=== PATIENT | female | born 1990 | race African-American/Black ===

== ENCOUNTER 2017-05-15 09:45 | Emergency (ER) | payer SELFPAY ==
--- NOTE | 2017-05-15 11:10 | RAD ---
PA AND LATERAL CHEST: Date: 05/15/17 COMPARISON: 05/16/16. HISTORY: Productive cough. FINDINGS: Heart size and mediastinum are within normal limits. Lungs are clear of infiltrates. No bony findings . IMPRESSION: No active intrathoracic disease. POS: [facility]
== END 2017-05-15 11:53 | disposition home or self-care (01) ==
LOC: ERS 09:45
DX: J20.9 Acute bronchitis, unspecified (principal); Z86.711 Personal history of pulmonary embolism
CPT/HCPCS: 71020

== ENCOUNTER 2017-12-02 12:37 | Emergency (ER) | payer OTHER, SELFPAY ==
[2017-12-02] MEDS ORDERED: diphenhydrAMINE 25 MG CAP ONE (13:23)
== END 2017-12-02 13:27 | disposition home or self-care (01) ==
LOC: ERS 12:37
DX: S80.862A Insect bite (nonvenomous), left lower leg, initial encounter (principal)
CPT/HCPCS: 99282

== ENCOUNTER 2017-12-10 12:34 | Emergency (ER) | payer OTHER ==
[2017-12-10 13:07] LABS: #Basophils 0.1 thou/uL (0.0-0.2); #Eosinphils 0.5 thou/uL (0.0-0.7); #Lymphocytes 1.9 thou/uL (1.20-3.40); #Monocytes 0.5 thou/uL (0.11-0.59); #Neutrophils 3.5 thou/uL (1.40-6.50); %Basophils 1.4 % (0.0-1.0); %Eosinophils 7.2 % (0.0-10.0); %Lymphocytes 29.6 % (21.0-51.0); %Monocytes 7.5 % (0.0-10.0); %Neutrophils 54.4 % (42.0-75.0); Hemoglobin 13.4 g/dL (12.0-16.0); Mean Corpuscular HGB CONC 33.5 g/dL (32.0-36.0); Mean Corpuscular Hemoglobin 28.4 pg (27.0-31.0); Mean Corpuscular Volume 84.6 fl (81.0-99.0); Mean Platelet Volume 7.1 fL (7.4-10.4); Platelet Count 331 thou/uL (130-400); RBC Distribution Width 12.3 % (11.5-14.5); Red Blood Cell (RBC) Count 4.72 mill/uL (4.20-5.40); White Blood Cell (WBC) Count 6.5 thou/uL (4.8-10.8)
[2017-12-10 13:34] LABS: ALT (SGPT) 13 U/L (8-55); AST (SGOT) 16 U/L (5-34); Albumin 3.8 g/dL (3.5-5.0); Alkaline Phosphatase 70 U/L (40-150); Anion Gap 12 mmol/L (10-20); BUN (Urea Nitrogen) 8 mg/dL (7.0-18.7); Bilirubin, Total 0.3 mg/dL (0.2-1.2); CK (CPK) 140 U/L (29-168); Calc. Creatinine Clearance 0 mL/min (70-130); Calcium 9.2 mg/dL (7.8-10.44); Carbon Dioxide 25 mmol/L (22-29); Chloride 105 mmol/L (98-107); Estimated GFR-MDRD Greater than 90; Globulin 3.3 g/dL (2.4-3.5); Glucose 78 mg/dL (70-105); Lipase 11 U/L (8-78); Potassium 3.7 mmol/L (3.5-5.1); Protein, Total 7.1 g/dL (6.0-8.3); Sodium 138 mmol/L (136-145)
[2017-12-10 13:38] LABS: CKMB 0.6 ng/mL (0-6.6); Troponin I Less than 0.010 ng/mL (< 0.028)
--- NOTE | 2017-12-10 13:52 | RAD ---
SINGLE VIEW CHEST: Date: 12/10/17 COMPARISON: 03/09/17. HISTORY: Chest pain. FINDINGS: Single view of the chest shows a normal sized cardiomediastinal silhouette. There is no evidence of c onsolidation, mass, or pleural effusion. The bones are unremarkable. IMPRESSION: No evidence of acute cardiopulmonary disease. POS: [facility]
[2017-12-10 14:38] LABS: BHCG - Serum Negative (NEGATIVE); Pregs Control Background? CLEAR/WHITE (CLR/WHITE); Pregs Control Bar Appear? YES (CONTROL BAR)
== END 2017-12-10 15:02 | disposition left against medical advice (07) ==
LOC: ERS 12:34
DX: R07.2 Precordial pain (principal)
CPT/HCPCS: 71045; 80053; 82553; 83690; 83880; 84484; 84703; 85025; 85379; 93005

== ENCOUNTER 2017-12-10 15:55 | Observation (INO) | payer OTHER ==
[~2017-12-10 15:55] MED LIST: ISOVUE-370 76%-LOCM 1 ML ONE
[2017-12-10 18:31] LABS: INR-International Normal Ratio 1.1; PTT 27.5 SEC (22.9-36.1)
[2017-12-10] MEDS ORDERED: Enoxaparin Sodium 80 MG/0.8 ML SYRINGE ONE (18:33)
--- NOTE | 2017-12-10 19:13 | CT ---
CT ANGIO OF CHEST WITH CONTRAST: 12/10/17 Multiple axial tomograms obtained through the chest following pulmonary angio protocol with multiplan ar reconstruction and 3D postprocessing. INDICATIONS: Chest pain. Shortness of breath. Elevated D-dimer. FINDINGS: Pulmonary arteries show adequate opacification. There is pulmonary embolus seen in a right middle lob e pulmonary artery which branches from the right descending main pulmonary artery. There is a linear embolus seen in this right descending pulmonary artery extending to the lower lobes. No other filling defect identified. The lung gomes are clear. There is no evidence of infiltrate or effusion. Mediastinum unremarkable. Images through upper abdomen unremarkable. IMPRESSION: 1. Evidence of a pulmonary embolus to a right middle lobe pulmonary artery. Linear embolus is se en in the main right descending pulmonary artery which extends to the lower lobe vessels. Findings relayed to Mey Echevarria, nurse practitioner. POS: [facility]
[2017-12-10] MEDS ORDERED: Fioricet 325/50/40 mg Tablet PO PRN (19:39)
[2017-12-10] MEDS ORDERED: Acetaminophen 325 MG TAB PO PRN (19:41)
[2017-12-10 20:54] LABS: INR-International Normal Ratio 1.1; PTT 33.3 SEC (22.9-36.1); Prothrombin Time 14.4 SEC (12.0-14.7)
[2017-12-10 20:55] LABS: D-Dimer Test 0.93 *mcg/mL (0.27-0.43)
[2017-12-10] MEDS: Famotidine 20 MG TAB PO SCH (21:03)
[2017-12-10] MEDS: Sodium Chloride 0.9% 1,000 ML IV SCH (22:01)
--- NOTE | 2017-12-10 22:11 | ULT ---
BILATERAL LOWER EXTREMITY VENOUS DUPLEX EXAM: 12/10/17 Deep veins of both lower extremities evaluated with color doppler, spectral analysis and compression. INDICATIONS: Pulmonary embolus. Lower extremity pain and edema. Deep veins of both lower extremities show normal blood flow and compression. No evidence of DVT. IMPRESSION: No evidence of lower extremity DVT. POS: [facility]
[2017-12-10 22:40] VITALS: BMI 37.8
--- NOTE | 2017-12-11 02:55 | HP ---
CHIEF COMPLAINT: Chest pain, shortness of breath. HISTORY OF PRESENT ILLNESS: The patient is a very pleasant 27-year-old female with a history of pulm onary embolism diagnosed back in 2011, who presents to the hospital with complaints of chest pain, he adache and some shortness of breath. Patient stated that she started having some sharp chest pain, s ubsternal, radiating to her back which has been going on and off for about a week. She also has been having some headaches, a pressure-like sensation in the front part of her head and also behind her n chanell area. Patient states that she did not take any medications for it. She thought it would just re solve on its own. The patient stated that she does have some photophobia; however, denies any nausea , vomiting. The patient denies any fevers or chills. The patient states further that in 2014, 2-3 w eeks after her third child that she had by , patient was diagnosed with a pulmonary embolism . At that time, patient states that she was put on Coumadin and took it for about a year and then se lf-took her off her medication in [id number]. Patient states that she did come in to the ER a couple of times in the past; however, she was told that she does not have a PE. The patient comes in today. She was scanned, which indicated a pulmonary embolism to her right middle lobe pulmonary artery and linear embolism is seen in the main right descending pulmonary artery, which extends to the lower lo bed vessels. PAST MEDICAL HISTORY: Pulmonary embolism. PAST SURGICAL HISTORY: She has had C-sections, hernia repair, and tubal ligation. SOCIAL HISTORY: She denies any alcohol, drugs or smoking. ALLERGIES: She is allergic to MORPHINE. She says she gets hives in reactions. MEDICATIONS: She takes none. REVIEW OF SYSTEMS: All negative except for the ones mentioned above in the HPI. PHYSICAL EXAMINATION: VITAL SIGNS: Temperature of 98.8, respirations are 18, blood pressure 107/71, pulse 76, and she is 1 00% on room air. GENERAL: She is awake, alert, oriented x3, does not appear in distress. CV: S1, S2 present. No murmurs, rubs or gallops. ABDOMEN: Soft, nontender. Bowel sounds present x2. No hepatomegaly and splenomegaly noted. LUNGS: Clear to auscultation. No rhonchi or wheezes noted. EXTREMITIES: No edema. Pedal pulses are present x2. No redness or pain noted. NEUROVASCULAR: No focal neuropathy noted. SKIN: Intact. LABORATORY DATA: As the following: She had a WBC of 6.5, hemoglobin of 13.4, hematocrit of 39.9, no bands, her platelets are 331. Chemistry: Sodium of 138, potassium 3.7, BUN of 8, creatinine 0.9. Her troponin x1 was negative. Her LFTs are completely normal. Her lipase is 11. Serum te st is negative. Coagulation, her INR was 1.1. She did have a D-dimer checked which was 0.55. She a lso had a chest and thorax CTA that indicated evidence of pulmonary embolism to the right middle lobe pulmonary artery, linear embolism seen in the right descending pulmonary artery. ASSESSMENT AND PLAN: The patient is a very pleasant 27-year-old female who presents to the hospital with shortness of breath and chest pain. Pulmonary embolism. Per patient, she initially was diagnosed in 2014 with a CTA that was done at [facility], she stated . The patient at that time was put on Coumadin which according to her , she took it about for a year and then self-took her off the medication. I see two CTAs in our faci lity, which were done in 12/2015 and then 02/2016. 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 She then had a CTA in 02/2016, which stated it was normal. The patient did state that she was told that her CTA was normal in the past. However, at this time, she comes in with chest pain and sh ortness of breath. She states that her symptoms are as not as severe as she had them in the past; kal seymour, her CT at this time, is positive for pulmonary embolism. Her troponins are negative. We will trend the troponins. We will start patient on Lovenox and she does have insurance, we will check wi th case management in the morning to see if we can start her on oral anticoagulation and if that is t he case, we will send her home with oral anticoagulation. We will also check lower extremity Doppler s. She already received a Lovenox shot, but however, I would like to know why she is still hypercoag ulable since she does not have a family history except for her maternal uncle who has had blood clots ; however, she stated that he is a drug user. She has not had any recent travel, has not had any rec ent children. She is not on any control. She has tubal ligation. She has had a Pap smear 2 m onths ago, which was negative. So, I did do a hypercoagulable workup. I will also refer her to [facility] as an outpatient and will go from there.
[2017-12-11 04:26] LABS: #Basophils 0.1 thou/uL (0.0-0.2); #Eosinphils 0.5 thou/uL (0.0-0.7); #Monocytes 0.4 thou/uL (0.11-0.59); #Neutrophils 2.6 thou/uL (1.40-6.50); %Basophils 1.1 % (0.0-1.0); %Eosinophils 8.4 % (0.0-10.0); %Lymphocytes 35.9 % (21.0-51.0); %Monocytes 7.2 % (0.0-10.0); %Neutrophils 47.4 % (42.0-75.0); Hemoglobin 12.7 g/dL (12.0-16.0); Mean Corpuscular HGB CONC 33.4 g/dL (32.0-36.0); Mean Corpuscular Hemoglobin 28.1 pg (27.0-31.0); Mean Corpuscular Volume 84.1 fl (81.0-99.0); Mean Platelet Volume 7.1 fL (7.4-10.4); Platelet Count 317 thou/uL (130-400); RBC Distribution Width 12.2 % (11.5-14.5); White Blood Cell (WBC) Count 5.4 thou/uL (4.8-10.8)
[2017-12-11 04:31] LABS: Anion Gap 10 mmol/L (10-20); BUN (Urea Nitrogen) 6 mg/dL (7.0-18.7); Calc. Creatinine Clearance 139 mL/min (70-130); Calcium 8.9 mg/dL (7.8-10.44); Carbon Dioxide 25 mmol/L (22-29); Chloride 109 mmol/L (98-107); Estimated GFR-MDRD Greater than 90; Glucose 90 mg/dL (70-105); Potassium 3.8 mmol/L (3.5-5.1); Sodium 140 mmol/L (136-145)
[2017-12-11] MEDS: Sodium Chloride 0.9% 1,000 ML IV SCH (04:41)
[2017-12-11] MEDS: Famotidine 20 MG TAB PO SCH ×2 (08:56→19:11)
[2017-12-11] MEDS: Ferrous Sulfate 325 MG TAB PO SCH ×2 (08:56→19:11)
[2017-12-11] MEDS ORDERED: Enoxaparin Sodium 80 MG/0.8 ML SYRINGE SC SCH (09:00)
[2017-12-11 11:13] LABS: Protein C Activity 112 % (78-152)
[2017-12-11 11:14] LABS: Factor VIII Test 247.2 % ACTIVE (56-157)
[2017-12-11] MEDS ORDERED: diphenhydrAMINE 50 MG/ML VIAL IVP SCH (11:45)
[2017-12-11] MEDS ORDERED: Metoclopramide HCl 10 MG/2 ML VIAL IVP SCH (11:45)
[2017-12-11 12:23] LABS: Cardiolipin IgA Ab 2.2 APL-U/mL (<14 Negative); Cardiolipin IgG Ab 0.9 GPL-U/mL (<10 Negative); Cardiolipin IgM Ab 1.2 MPL-U/mL (<10 Negative); EliA APS New Method **** NEW METHOD ****
--- NOTE | 2017-12-11 12:37 | PDOC.PN ---
- Subjective Encounter Start Date: 12/11/17 Encounter Start Time: 10:30 Subjective: pt up in bed complains of headache - Objective Vital Signs & Weight: Vital Signs (12 hours) Temp Pulse Resp BP BP Pulse Ox 12/11/17 11:05 98.2 F 63 18 107/50 L 99 12/11/17 08:56 98.4 F 68 18 12/11/17 07:25 98.4 F 68 18 106/53 L 96 12/11/17 04:07 98.0 F 67 16 103/56 L 98 Weight Weight 187 lb Result Diagrams: 12/11/17 04:03 12/11/17 04:03 Additional Labs: Accuchecks 12/11/17 09:44 POC Glucose 90 Phys Exam - Physical Examination HEENT: PERRLA, moist MMs, sclera anicteric, TM's clear, oral pharynx no lesions , 2+ tonsils Neck: no nodes, no JVD, supple, full ROM Respiratory: no wheezing, no rales, no rhonchi, wheezing present, clear to auscultation bilateral Cardiovascular: RRR, no significant murmur, no rub, gallop, irregular Gastrointestinal: soft, non-tender, no distention, positive bowel sounds pain around her neck muscles Dx/Plan (1) Pulmonary emboli Code(s): I26.99 - OTHER PULMONARY EMBOLISM WITHOUT ACUTE COR PULMONALE Status : Acute - Plan * . pt's able to afford her xarelto. lower ext Doppler neg. hypercoagulation work up pending. will start pt on xarelto. she will need outpatient follow up. Review of Systems - Review of Systems ENT: negative: Ear Pain, Ear Discharge, Nose Pain, Nose Discharge, Nose Congestion, Mouth Pain, Mouth Swelling, Throat Pain, Throat Swelling, Other Respiratory: negative: Cough, Dry, Shortness of Breath, Hemoptysis, SOB with Excertion, Pleuritic Pain, Sputum, Wheezing Gastrointestinal: negative: Nausea, Vomiting, Abdominal Pain, Diarrhea, Constipation, Melena, Hematochezia, Other - Medications/Allergies Allergies/Adverse Reactions: Allergies Allergy/AdvReac Type Severity Reaction Status Date / Time morphine Allergy Hives Verified 12/10/17 21:54 Medications: Current Medications Acetaminophen (Tylenol) 650 mg PO Q4H PRN PRN Reason: Headache/Fever or Pain Last Admin: 12/11/17 10:50 Dose: 650 mg Acetaminophen/Butalbital/Caffeine (Fioricet) 1 tab PO Q4H PRN PRN Reason: Headache Stop: 12/15/17 19:40 Last Admin: 12/10/17 21:03 Dose: 1 tab Diphenhydramine HCl (Benadryl) 12.5 mg IVP ONE [facility] Stop: 12/11/17 16:00 Famotidine (Pepcid) 20 mg PO BID [facility] Last Admin: 12/11/17 08:56 Dose: 20 mg Ferrous Sulfate (Feosol) 325 mg PO BID[facility] Last Admin: 12/11/17 08:56 Dose: 325 mg Metoclopramide HCl (Reglan) 10 mg IVP ONE [facility] Stop: 12/11/17 16:00 Rivaroxaban (Xarelto) 15 mg PO BID [facility] Sodium Chloride (Flush - Normal Saline) 10 ml IVF Q12HR [facility] Last Admin: 12/11/17 08:57 Dose: 10 ml Sodium Chloride (Flush - Normal Saline) 10 ml IVF PRN PRN PRN Reason: Saline Flush
[2017-12-11 12:41] LABS: HEX PHOS LA Tube 2 59.5 SEC; Hexagonal Phospholipid Neut 3.4 SEC (0-8.0)
[2017-12-11] MEDS ORDERED: diphenhydrAMINE 12.5 MG/5 ML UDCUP PO PRN (12:53)
[2017-12-11] MEDS ORDERED: Metoclopramide HCl 10 MG TAB PO PRN (12:54)
[2017-12-11 13:27] LABS: CKMB 0.5 ng/mL (0-6.6); Troponin I Less than 0.010 ng/mL (< 0.028)
[2017-12-11] MEDS: Rivaroxaban 15 MG TAB PO SCH (19:11)
[2017-12-11] MEDS ORDERED: Rivaroxaban 15 MG TAB PO SCH (21:00)
[2017-12-12 07:56] VITALS: BP 122/59; TEMP 98.7
[2017-12-12] MEDS: Famotidine 20 MG TAB PO SCH (09:13)
[2017-12-12] MEDS: Rivaroxaban 15 MG TAB PO SCH (09:13)
[2017-12-12] MEDS: Ferrous Sulfate 325 MG TAB PO SCH (09:13)
--- NOTE | 2017-12-12 17:01 | DIS ---
DATE OF ADMISSION: 12/10/2017 DATE OF DISCHARGE: 12/12/2017 DISCHARGE DIAGNOSIS: Acute pulmonary embolism. HOSPITAL COURSE: The patient is a very pleasant 27-year-old female who presented to the hospital on the with complaints of some chest pain and shortness of breath. The patient has had a history o f a PE in the past and she took Coumadin for about a year to get off of Coumadin. She has had a coup le of scans after that, which indicated no PE. However, she comes in today with complaints of some s hortness of breath. She denies any recent travel, any recent surgeries, any recent pregnancies. She does not have a significant family history of blood clots; however, she said her uncle has a history of blood clots. The patient was initially given Lovenox shots. She was transitioned to Xarelto. Santosh crowe did check with her insurance and she is able to afford Xarelto. We will start the patient on a nini ding dose of 15 mg twice a day, followed by 20 mg daily and she was given instructions on the risk fa ctors including bleeding and education on Xarelto. The patient will be discharged home. Follow up w [facility] PCP. Also, Hematology referral was given. Hypercoagulable workup was sent. The patient also mckeon d lower extremity venous Dopplers, which indicated there were no DVT. PHYSICAL EXAMINATION: VITAL SIGNS: 98.7, 72, 16, 97% on room air, 122/59. GENERAL: She is awake, alert, oriented x3, does not appear in distress. CARDIOVASCULAR: S1, S2 present. No murmurs, rubs or gallops. ABDOMEN: Soft, nontender. Bowel sounds are present x2. EXTREMITIES: No edema. DISCHARGE INSTRUCTIONS: Again, the patient will be discharged home. Follow up with PCP and Hematolo gy.
== END 2017-12-12 11:28 | disposition home or self-care (01) ==
LOC: ERS 15:55 → 2SW 20:08
PROVIDERS: ADMIT Internal Medicine; ATTEND Internal Medicine
DX: I26.99 Other pulmonary embolism without acute cor pulmonale (principal); Z88.5 Allergy status to narcotic agent; Z79.899 Other long term (current) drug therapy
CPT/HCPCS: 36415; 36416; 71045; 71275; 80048; 80053; 81240; 81241; 82553; 83090; 83690; 83880; 84484; 84703; 85025; 85240; 85300; 85303; 85305; 85307; 85379; 85598; 85610; 85730; 86147; 93005; 93010; 93970; 96372; A4216; G0378; J1650

== ENCOUNTER 2018-05-15 16:43 | Emergency (ER) | payer OTHER ==
--- NOTE | 2018-05-15 17:13 | RAD ---
PORTABLE FRONTAL CHEST RADIOGRAPH: 05/15/18 COMPARISON: 12/10/17. HISTORY: Chest pain and chest tightness. FINDINGS: There is no pneumothorax or pleural fluid. No focal consolidation, or alveolar edema. Heart and media stinal contours appear grossly unremarkable. IMPRESSION: No acute findings. POS: [facility]
[2018-05-15] MEDS ORDERED: Fentanyl 100 MCG/2 ML VIAL ONE (17:31)
[2018-05-15 17:36] LABS: #Basophils 0.1 thou/uL (0.0-0.2); #Eosinphils 0.6 thou/uL (0.0-0.7); #Lymphocytes 2.4 thou/uL (1.20-3.40); #Monocytes 0.8 thou/uL (0.11-0.59); #Neutrophils 4.7 thou/uL (1.40-6.50); %Basophils 1.2 % (0.0-1.0); %Eosinophils 7.4 % (0.0-10.0); %Lymphocytes 27.5 % (21.0-51.0); %Monocytes 9.4 % (0.0-10.0); %Neutrophils 54.5 % (42.0-75.0); Hemoglobin 11.1 g/dL (12.0-16.0); Mean Corpuscular HGB CONC 32.6 g/dL (32.0-36.0); Mean Corpuscular Hemoglobin 25.2 pg (27.0-31.0); Mean Corpuscular Volume 77.4 fL (78.0-98.0); Mean Platelet Volume 7.8 fL (7.4-10.4); Platelet Count 364 thou/uL (130-400); RBC Distribution Width 13.6 % (11.5-14.5); Red Blood Cell (RBC) Count 4.39 mill/uL (4.20-5.40); White Blood Cell (WBC) Count 8.6 thou/uL (4.8-10.8)
[2018-05-15 17:45] LABS: INR-International Normal Ratio 1.1; PTT 29.4 SEC (22.9-36.1); Prothrombin Time 14.3 SEC (12.0-14.7)
[2018-05-15 17:47] LABS: D-Dimer Test 0.48 *mcg/mL (0.27-0.43)
[2018-05-15 17:52] LABS: ALT (SGPT) 14 U/L (8-55); AST (SGOT) 17 U/L (5-34); Albumin 3.7 g/dL (3.5-5.0); Alkaline Phosphatase 70 U/L (40-150); Anion Gap 9 mmol/L (10-20); BUN (Urea Nitrogen) 10 mg/dL (7.0-18.7); Bilirubin, Total 0.3 mg/dL (0.2-1.2); CK (CPK) 212 U/L (29-168); Calc. Creatinine Clearance 0 mL/min (70-130); Calcium 9.7 mg/dL (7.8-10.44); Carbon Dioxide 25 mmol/L (22-29); Chloride 108 mmol/L (98-107); Estimated GFR-MDRD Greater than 90; Globulin 3.5 g/dL (2.4-3.5); Glucose 80 mg/dL (70-105); Lipase 15 U/L (8-78); Potassium 4.1 mmol/L (3.5-5.1); Protein, Total 7.2 g/dL (6.0-8.3); Sodium 138 mmol/L (136-145)
[2018-05-15 17:55] LABS: CKMB 0.9 ng/mL (0-6.6); Troponin I Less than 0.010 ng/mL (< 0.028)
[2018-05-15 18:08] LABS: BHCG - Serum Negative (NEGATIVE); Pregs Control Background? CLEAR/WHITE (CLR/WHITE); Pregs Control Bar Appear? YES (CONTROL BAR)
[2018-05-15] MEDS ORDERED: diphenhydrAMINE 50 MG CAP ONE (18:36)
[2018-05-15] MEDS ORDERED: methylPREDNISolone Sod Succ/PF 125 MG/2 ML VIAL ONE (18:36)
--- NOTE | 2018-05-15 18:42 | CT ---
CT ANGIOGRAM OF THE CHEST 05/15/18 COMPARISON: 12/10/17 HISTORY: Chest tightness, chest pain. TECHNIQUE: Serial axial CT imaging at 2.5 mm intervals from the thoracic inlet through the upper abdomen with IV contrast using a CT angiogram protocol. Coronal and oblique sagittal 3D reformatted imaging obtained . FINDINGS: no axillary, mediastinal, or hilar lymphadenopathy noted. Review of the imaged upper abdomen appears grossly unremarkable. No pleural, pericardial, or mediastinal fluid is seen. Opacification of the distal pulmonary arteries bilaterally is limited on the basis of timing of the c ontrast bolus. No central pulmonary embolism is appreciated. No pneumothorax noted on either side. Lung parenchyma appears grossly unremarkable bilaterally. [place] us structures demonstrate no acute findings. IMPRESSION: No CT angiographic evidence of central pulmonary embolism. POS: [facility]
[2018-05-15] MEDS ORDERED: diphenhydrAMINE 50 MG/ML VIAL IVP SCH (18:45)
[2018-05-15] MEDS ORDERED: Enoxaparin Sodium 100 MG/ML SYRINGE ONE (19:40)
[2018-05-15 21:21] LABS: Troponin I Less than 0.010 ng/mL (< 0.028)
== END 2018-05-15 21:43 | disposition home or self-care (01) ==
LOC: ERS 16:43
DX: R07.89 Other chest pain (principal); Z79.899 Other long term (current) drug therapy
CPT/HCPCS: 36415; 71045; 71275; 80053; 82550; 82553; 83690; 83880; 84484; 84703; 85025; 85379; 85610; 85730; 93005; 94760; 96361; 96372; 96374; 96375; J1200; J1650; J2930; J3010

== ENCOUNTER 2018-09-12 12:18 | Emergency (ER) | payer OTHER, SELFPAY ==
[2018-09-12 12:50] LABS: #Eosinphils 0.4 thou/uL (0.0-0.7); #Lymphocytes 1.8 thou/uL (1.20-3.40); #Monocytes 0.6 thou/uL (0.11-0.59); #Neutrophils 4.3 thou/uL (1.40-6.50); %Basophils 0.6 % (0.0-1.0); %Lymphocytes 25.4 % (21.0-51.0); %Monocytes 7.9 % (0.0-10.0); %Neutrophils 60.1 % (42.0-75.0); Hemoglobin 11.9 g/dL (12.0-16.0); Mean Corpuscular HGB CONC 33.1 g/dL (32.0-36.0); Mean Corpuscular Hemoglobin 25.3 pg (27.0-31.0); Mean Corpuscular Volume 76.6 fL (78.0-98.0); Mean Platelet Volume 7.6 fL (7.4-10.4); Platelet Count 395 thou/uL (130-400); Red Blood Cell (RBC) Count 4.69 mill/uL (4.20-5.40); White Blood Cell (WBC) Count 7.2 thou/uL (4.8-10.8)
[2018-09-12 12:57] LABS: INR-International Normal Ratio 1.1; PTT 27.4 SEC (22.9-36.1)
[2018-09-12 12:58] LABS: D-Dimer Test 0.78 *mcg/mL (0.27-0.43)
[2018-09-12] MEDS ORDERED: ISOVUE-370 76%-LOCM 1 ML ONE (13:06)
[2018-09-12 13:11] LABS: ALT (SGPT) 12 U/L (8-55); AST (SGOT) 16 U/L (5-34); Albumin 3.9 g/dL (3.5-5.0); Alkaline Phosphatase 74 U/L (40-150); Anion Gap 10 mmol/L (10-20); BUN (Urea Nitrogen) 9 mg/dL (7.0-18.7); Bilirubin, Total 0.3 mg/dL (0.2-1.2); Calc. Creatinine Clearance 0 mL/min (70-130); Calcium 9.6 mg/dL (7.8-10.44); Carbon Dioxide 27 mmol/L (22-29); Chloride 107 mmol/L (98-107); Estimated GFR-MDRD 82; Globulin 3.3 g/dL (2.4-3.5); Glucose 64 mg/dL (70-105); Protein, Total 7.2 g/dL (6.0-8.3); Sodium 140 mmol/L (136-145)
--- NOTE | 2018-09-12 13:58 | RAD ---
2 VIEW CHEST: Date: 09/12/18 HISTORY: Cough. FINDINGS: Lungs are clear. No infiltrate. Heart and mediastinum unremarkable. IMPRESSION: No acute findings. POS: [facility]
[2018-09-12 14:15] LABS: BHCG - Serum Negative (NEGATIVE); Pregs Control Background? CLEAR/WHITE (CLR/WHITE); Pregs Control Bar Appear? YES (CONTROL BAR)
--- NOTE | 2018-09-12 15:16 | CT ---
CHEST CT ANGIOGRAM WITH 3D RENDERING: Date: 09/12/18 HISTORY: Dyspnea. Chest pain. COMPARISON: 05/15/18. FINDINGS: No evidence for acute pulmonary parenchymal process or pleural or pericardial effusion. Central pulmo nary arteries are free of thrombus. No convincing CT evidence for acute pulmonary embolism. No eviden ce for aortic aneurysm or dissection. Visualized upper abdomen is unremarkable. IMPRESSION: No convincing CT evidence for acute pulmonary embolism. No evidence for other significant acute proce ss. POS: [facility]
[2018-09-12] MEDS ORDERED: Ketorolac Tromethamine 30 MG/ML VIAL ONE (16:32)
== END 2018-09-12 16:48 | disposition home or self-care (01) ==
LOC: ERS 12:18
DX: J20.9 Acute bronchitis, unspecified (principal); Z86.711 Personal history of pulmonary embolism
CPT/HCPCS: 36415; 71046; 71275; 80053; 84484; 84703; 85025; 85379; 85610; 85730; 93005; 96374; J1885; Q9966

== ENCOUNTER 2018-09-29 10:25 | Emergency (ER) | payer SELFPAY | END 2018-09-29 12:09 | disposition home or self-care (01) | LOC: ERS 10:25 | DX: J01.90 Acute sinusitis, unspecified (principal) | CPT/HCPCS: 99281 ==

== ENCOUNTER 2018-10-27 12:05 | Emergency (ER) | payer SELFPAY ==
[2018-10-27 12:53] LABS: #Eosinphils 0.5 thou/uL (0.0-0.7); #Lymphocytes 2.1 thou/uL (1.20-3.40); #Monocytes 0.6 thou/uL (0.11-0.59); %Basophils 0.5 % (0.0-1.0); %Eosinophils 7.9 % (0.0-10.0); %Lymphocytes 34.2 % (21.0-51.0); %Monocytes 8.8 % (0.0-10.0); %Neutrophils 48.6 % (42.0-75.0); Hemoglobin 11.6 g/dL (12.0-16.0); Mean Corpuscular HGB CONC 32.1 g/dL (32.0-36.0); Mean Corpuscular Hemoglobin 25.2 pg (27.0-31.0); Mean Corpuscular Volume 78.4 fL (78.0-98.0); Mean Platelet Volume 7.6 fL (7.4-10.4); Platelet Count 395 thou/uL (130-400); RBC Distribution Width 15.1 % (11.5-14.5); Red Blood Cell (RBC) Count 4.61 mill/uL (4.20-5.40); White Blood Cell (WBC) Count 6.2 thou/uL (4.8-10.8)
[2018-10-27 13:09] LABS: D-Dimer Test 0.47 *mcg/mL (0.27-0.43); INR-International Normal Ratio 1.1; PTT 27.6 SEC (22.9-36.1); Prothrombin Time 14.1 SEC (12.0-14.7)
[2018-10-27 13:17] LABS: ALT (SGPT) 12 U/L (8-55); AST (SGOT) 17 U/L (5-34); Albumin 3.9 g/dL (3.5-5.0); Alkaline Phosphatase 72 U/L (40-150); Anion Gap 11 mmol/L (10-20); BUN (Urea Nitrogen) 7 mg/dL (7.0-18.7); Bilirubin, Total 0.3 mg/dL (0.2-1.2); CK (CPK) 191 U/L (29-168); Calc. Creatinine Clearance 0 mL/min (70-130); Calcium 9.4 mg/dL (7.8-10.44); Carbon Dioxide 24 mmol/L (22-29); Chloride 107 mmol/L (98-107); Estimated GFR-MDRD Greater than 90; Globulin 3.2 g/dL (2.4-3.5); Glucose 72 mg/dL (70-105); Potassium 3.6 mmol/L (3.5-5.1); Protein, Total 7.1 g/dL (6.0-8.3); Sodium 138 mmol/L (136-145)
--- NOTE | 2018-10-27 13:17 | RAD ---
PA AND LATERAL VIEWS OF CHEST: Date: 10/27/18 HISTORY: Chest pain. FINDINGS: Comparison made with exam of 09/12/18. The heart size is normal. The lungs are expanded without focal areas of consolidation, pneumothoraces , or pleural effusions. No acute osseous abnormalities are seen. IMPRESSION: No radiographic evidence of acute cardiopulmonary process. POS: [facility]
[2018-10-27 14:27] LABS: BHCG - Serum Negative (NEGATIVE); Pregs Control Background? CLEAR/WHITE (CLR/WHITE); Pregs Control Bar Appear? YES (CONTROL BAR)
[2018-10-27] MEDS ORDERED: ISOVUE-370 76%-LOCM 1 ML ONE (14:39)
[2018-10-27] MEDS ORDERED: diphenhydrAMINE 50 MG/ML VIAL ONE (14:46)
[2018-10-27] MEDS ORDERED: methylPREDNISolone Sod Succ/PF 125 MG/2 ML VIAL ONE (14:46)
--- NOTE | 2018-10-27 14:47 | ULT ---
Left upper extremity venous duplex ultrasound including color and spectral Doppler imaging: HISTORY: Dyspnea, chest pain FINDINGS: The left upper extremity deep venous system is evaluated including the internal jugular, subclavian, axillary, brachial, radial and ulnar veins. Visualized cephalic and basilic veins are evaluated. There is incomplete compressibility of the upper and mid brachial vein with decreased flow through th is region evidence for incompletely obstructing thrombus. The radial and ulnar veins are patent as are the remainder of the left upper extremity deep veins. IMPRESSION: Decreased compressibility and minimal intraluminal thrombus within the upper and mid left brachial ve in evidence for incompletely obstructing deep venous thrombosis. Findings given by the medical technologist generalist to Dr. Vallejo at 2:40 PM CODE CR
[2018-10-27] MEDS ORDERED: Famotidine/PF 20 mg/2ml Vial ONE (14:48)
--- NOTE | 2018-10-27 15:53 | CT ---
CT PULMONARY ANGIOGRAM WITH IV CONTRAST AND 3D POSTPROCESSIN10/27/18 HISTORY: Chest pain, left upper extremity DVT. FINDINGS: There is good opacification of the pulmonary artery vasculature without filling defects to suggest pu lmonary embolism. The thoracic aorta is well opacified without aneurysmal dissection. A residual thym us is again seen as on 09/12/18. No fluid or pericardial effusions are identified. No pneumothoraces, focal areas of consolidation, lung masses/nodules are seen. Upper abdominal tomograms are unremarkabl e. No acute osseous abnormalities are seen. IMPRESSION: No CT evidence of pulmonary embolism. POS: [facility]
== END 2018-10-27 16:49 | disposition home or self-care (01) ==
LOC: ERS 12:05
DX: I82.622 Acute embolism and thrombosis of deep veins of left upper extremity (principal); I26.99 Other pulmonary embolism without acute cor pulmonale; Z79.01 Long term (current) use of anticoagulants
CPT/HCPCS: 36415; 71046; 71275; 80053; 82550; 84484; 84703; 85025; 85379; 85610; 85730; 93005; 96374; 96375; J1200; J2930; Q9966; S0028

== ENCOUNTER 2019-03-01 23:35 | Emergency (ER) | payer SELFPAY ==
[2019-03-02 00:24] LABS: #Basophils 0.1 thou/uL (0.0-0.2); #Eosinphils 0.5 thou/uL (0.0-0.7); #Lymphocytes 2.7 thou/uL (1.20-3.40); #Monocytes 0.6 thou/uL (0.11-0.59); #Neutrophils 4.6 thou/uL (1.40-6.50); %Eosinophils 5.9 % (0.0-10.0); %Lymphocytes 32.1 % (21.0-51.0); %Monocytes 7.1 % (0.0-10.0); Hemoglobin 11.9 g/dL (12.0-16.0); Mean Corpuscular HGB CONC 34.1 g/dL (32.0-36.0); Mean Corpuscular Hemoglobin 26.6 pg (27.0-31.0); Mean Corpuscular Volume 77.9 fL (78.0-98.0); Mean Platelet Volume 7.9 fL (7.4-10.4); Platelet Count 330 thou/uL (130-400); RBC Distribution Width 14.8 % (11.5-14.5); Red Blood Cell (RBC) Count 4.46 mill/uL (4.20-5.40); White Blood Cell (WBC) Count 8.4 thou/uL (4.8-10.8)
[2019-03-02 00:43] LABS: ALT (SGPT) 11 U/L (8-55); AST (SGOT) 16 U/L (5-34); Alkaline Phosphatase 69 U/L (40-150); Anion Gap 11 mmol/L (10-20); BUN (Urea Nitrogen) 10 mg/dL (7.0-18.7); Bilirubin, Total 0.4 mg/dL (0.2-1.2); Calc. Creatinine Clearance 0 mL/min (70-130); Calcium 9.6 mg/dL (7.8-10.44); Carbon Dioxide 25 mmol/L (22-29); Chloride 106 mmol/L (98-107); Estimated GFR-MDRD Greater than 90; Globulin 2.9 g/dL (2.4-3.5); Glucose 85 mg/dL (70-105); Potassium 3.8 mmol/L (3.5-5.1); Protein, Total 6.9 g/dL (6.0-8.3); Sodium 138 mmol/L (136-145)
[2019-03-02 02:32] LABS: Bilirubin Negative (Negative); Blood, Urine Negative (Negative); Clarity Clear (Clear); Glucose, Urine (Dipstick) Normal (Negative); Leukocyte Negative Leu/uL (Negative); Nitrite Negative (Negative); Protein, Urine (Dipstick) Negative (Neg-Trace); Urobilinogen Normal mg/dL (Less than 2)
[2019-03-02 02:33] LABS: Pregnancy Test - Urine (BHCG) Negative (Negative); Pregu Control Background? CLEAR/WHITE (CLR/WHITE); Pregu Control Bar Appear? YES (CONTROL BAR); Specific Gravity 1.014 (1.002-1.036)
--- NOTE | 2019-03-02 08:33 | RAD ---
CHEST ONE VIEW: HISTORY: Left-sided chest pain and shortness of breath. COMPARISON: 10/27/2018 FINDINGS: Heart size is normal. Lungs are clear. IMPRESSION: No acute intrathoracic disease. POS: [facility]
--- NOTE | 2019-03-06 03:16 | EKG ---
Test Reason : Blood Pressure : / mmHG Vent. Rate : 078 BPM Atrial Rate : 078 BPM P-R Int : 154 ms QRS Dur : 088 ms QT Int : 362 ms P-R-T Axes : 034 007 007 degrees QTc Int : 412 ms Normal sinus rhythm Normal ECG Confirmed by EMERITA BARRIENTOS DO ([id number]), assistant production editor SIGIFREDO LARA ([id number]) on 03/06/2019 3:15:12 AM Referred By: Confirmed By:EMERITA BARRIENTOS DO
== END 2019-03-02 02:25 | disposition home or self-care (01) ==
LOC: ERS 23:35
DX: R07.89 Other chest pain (principal); F32.9 Major depressive disorder, single episode, unspecified; I82.622 Acute embolism and thrombosis of deep veins of left upper extremity; Z86.711 Personal history of pulmonary embolism; Z79.01 Long term (current) use of anticoagulants
CPT/HCPCS: 36415; 71045; 80053; 81003; 81025; 83880; 84484; 85025; 85379; 93005

== ENCOUNTER 2019-04-26 08:36 | Emergency (ER) | payer SELFPAY ==
--- NOTE | 2019-04-26 09:01 | RAD ---
Exam: Chest 2 views HISTORY:Pain Comparison: 10/27/2018 FINDINGS: Lungs: No masses or consolidation. Cardiac silhouette: Normal size Pulmonary vessels: Normal Pleural Spaces: Clear Pneumothorax: None Osseous abnormalities: None of acuity. IMPRESSION: No focal consolidation.
[2019-04-26 09:04] LABS: #Basophils 0.1 thou/uL (0.0-0.2); #Eosinphils 0.6 thou/uL (0.0-0.7); #Monocytes 0.5 thou/uL (0.11-0.59); %Basophils 0.7 % (0.0-1.0); %Eosinophils 7.9 % (0.0-10.0); %Monocytes 6.7 % (0.0-10.0); %Neutrophils 56.7 % (42.0-75.0); Hemoglobin 11.7 g/dL (12.0-16.0); Mean Corpuscular HGB CONC 31.3 g/dL (32.0-36.0); Mean Corpuscular Hemoglobin 24.6 pg (27.0-31.0); Mean Corpuscular Volume 78.6 fL (78.0-98.0); Mean Platelet Volume 7.6 fL (7.4-10.4); Platelet Count 411 thou/uL (130-400); RBC Distribution Width 14.1 % (11.5-14.5); Red Blood Cell (RBC) Count 4.74 mill/uL (4.20-5.40); White Blood Cell (WBC) Count 7.1 thou/uL (4.8-10.8)
[2019-04-26 09:20] LABS: ALT (SGPT) 8 U/L (8-55); AST (SGOT) 14 U/L (5-34); Alkaline Phosphatase 83 U/L (40-110); Anion Gap 12 mmol/L (10-20); BUN (Urea Nitrogen) 5 mg/dL (7.0-18.7); Bilirubin, Total 0.3 mg/dL (0.2-1.2); Calc. Creatinine Clearance 0 mL/min (70-130); Calcium 9.4 mg/dL (7.8-10.44); Carbon Dioxide 25 mmol/L (22-29); Chloride 106 mmol/L (98-107); Estimated GFR-MDRD Greater than 90; Globulin 3.3 g/dL (2.4-3.5); Glucose 83 mg/dL (70-105); Potassium 4.1 mmol/L (3.5-5.1); Protein, Total 7.3 g/dL (6.0-8.3); Sodium 139 mmol/L (136-145)
[2019-04-26 09:57] LABS: BHCG - Serum Negative (NEGATIVE); Pregs Control Background? CLEAR/WHITE (CLR/WHITE); Pregs Control Bar Appear? YES (CONTROL BAR)
[2019-04-26] MEDS ORDERED: Acetaminophen 500 MG TAB ONE (11:07)
[2019-04-26] MEDS ORDERED: Ketorolac Tromethamine 60 MG/2 ML VIAL ONE (11:07)
== END 2019-04-26 11:25 | disposition home or self-care (01) ==
LOC: ERS 08:36
DX: R07.9 Chest pain, unspecified (principal); F32.9 Major depressive disorder, single episode, unspecified; Z86.711 Personal history of pulmonary embolism; Z86.718 Personal history of other venous thrombosis and embolism
CPT/HCPCS: 36415; 71046; 80053; 84484; 84703; 85025; 85379; 93005; 96372; J1885

== ENCOUNTER 2019-05-22 09:54 | Emergency (ER) | payer SELFPAY ==
[2019-05-22 10:57] LABS: #Basophils 0.1 thou/uL (0.0-0.2); #Eosinphils 0.4 thou/uL (0.0-0.7); #Monocytes 0.5 thou/uL (0.11-0.59); #Neutrophils 3.4 thou/uL (1.40-6.50); %Basophils 1.1 % (0.0-1.0); %Eosinophils 6.4 % (0.0-10.0); %Lymphocytes 30.8 % (21.0-51.0); %Monocytes 7.5 % (0.0-10.0); %Neutrophils 54.2 % (42.0-75.0); Hemoglobin 12.1 g/dL (12.0-16.0); Mean Corpuscular HGB CONC 33.4 g/dL (32.0-36.0); Mean Corpuscular Hemoglobin 25.9 pg (27.0-31.0); Mean Corpuscular Volume 77.6 fL (78.0-98.0); Mean Platelet Volume 8.2 fL (7.4-10.4); Platelet Count 379 thou/uL (130-400); RBC Distribution Width 13.7 % (11.5-14.5); Red Blood Cell (RBC) Count 4.65 mill/uL (4.20-5.40); White Blood Cell (WBC) Count 6.3 thou/uL (4.8-10.8)
[2019-05-22 11:11] LABS: ALT (SGPT) 11 U/L (8-55); AST (SGOT) 18 U/L (5-34); Albumin 4.1 g/dL (3.5-5.0); Alkaline Phosphatase 79 U/L (40-110); Anion Gap 11 mmol/L (10-20); BUN (Urea Nitrogen) 8 mg/dL (7.0-18.7); Bilirubin, Total 0.4 mg/dL (0.2-1.2); CK (CPK) 216 U/L (29-168); Calc. Creatinine Clearance 0 mL/min (70-130); Calcium 9.4 mg/dL (7.8-10.44); Carbon Dioxide 26 mmol/L (22-29); Chloride 106 mmol/L (98-107); Estimated GFR-MDRD 89; Globulin 3.7 g/dL (2.4-3.5); Glucose 81 mg/dL (70-105); Potassium 3.6 mmol/L (3.5-5.1); Protein, Total 7.8 g/dL (6.0-8.3); Sodium 139 mmol/L (136-145)
[2019-05-22] MEDS ORDERED: Famotidine/PF 20 mg/2ml Vial ONE (11:23)
[2019-05-22] MEDS ORDERED: diphenhydrAMINE 50 MG/ML VIAL ONE (11:23)
[2019-05-22] MEDS ORDERED: methylPREDNISolone Sod Succ/PF 125 MG/2 ML VIAL ONE (11:24)
--- NOTE | 2019-05-22 11:42 | ULT ---
Bilateral lower extremity venous Doppler ultrasound: 05/22/2019 COMPARISON: None HISTORY: History of DVT and pulmonary embolism TECHNIQUE: Multiplanar grayscale sonographic imaging of the venous structures of bilateral lower extr emities obtained with color flow and spectral analysis FINDINGS: Bilateral common femoral veins, greater saphenous veins, profunda femoral veins, femoral ve ins, popliteal veins, and posterior tibial veins are patent. There is normal blood flow, augmentation, and compression within the deep venous system bilaterally. No evidence for DVT on eithe r side IMPRESSION: No evidence for deep venous thrombosis of either lower extremity.
[2019-05-22] MEDS ORDERED: Iopamidol-370 76% 500 ML 1 ML ONE (12:11)
--- NOTE | 2019-05-22 13:42 | CT ---
CT PULMONARY ANGIOGRAM WITH IV CONTRAST AND 3D MIP RECONSTRUCTIONS: 05/22/2019 PROVIDED CLINICAL HISTORY: Chest pain. COMPARISON: 10/27/2018 FINDINGS: The heart, pericardium and great vessels demonstrate an unremarkable CT appearance. There is no evide nce for central or segmental pulmonary embolus. The lungs are free of significant opacity. No pleural fluid or pneumothorax apparent. The airway appears patent and of normal caliber. No evidence for tho racic lymph node enlargement. The visualized portions of the upper abdomen appear unremarkable. The osseous structures demonstrate no acute findings. IMPRESSION: No evidence for central or segmental pulmonary embolus. POS: [facility]
== END 2019-05-22 13:50 | disposition home or self-care (01) ==
LOC: EEVIPCON 09:54 → ERS 09:54
DX: R07.9 Chest pain, unspecified (principal); H11.31 Conjunctival hemorrhage, right eye; Z86.718 Personal history of other venous thrombosis and embolism; Z86.711 Personal history of pulmonary embolism; F32.9 Major depressive disorder, single episode, unspecified; Z79.01 Long term (current) use of anticoagulants
CPT/HCPCS: 71275; 80053; 82550; 84484; 85025; 85379; 93005; 93970; 94760; 96374; 96375; J1200; J2930; Q9967; S0028

== ENCOUNTER 2019-09-03 14:27 | Emergency (ER) | payer MEDICARE, SELFPAY ==
[2019-09-03] MEDS ORDERED: Ketorolac Tromethamine 30 MG/ML VIAL ONE (15:32)
--- NOTE | 2019-09-03 15:48 | RAD ---
EXAM: Two views chest PROVIDED CLINICAL HISTORY: Back pain COMPARISON: 04/26/2019 FINDINGS: Cardiac and mediastinal silhouette appears within normal limits. Lungs appear free of significant opa city. No pleural fluid or pneumothorax apparent. IMPRESSION: No evidence for an acute cardiopulmonary process.
== END 2019-09-03 16:33 | disposition home or self-care (01) ==
LOC: ERS 14:27
DX: S29.012A Strain of muscle and tendon of back wall of thorax, initial encounter (principal); Z86.711 Personal history of pulmonary embolism; Z86.718 Personal history of other venous thrombosis and embolism; F32.9 Major depressive disorder, single episode, unspecified; Z79.899 Other long term (current) drug therapy; X50.9XXA Other and unspecified overexertion or strenuous movements or postures, initial encounter; Y99.0 Civilian activity done for income or pay
CPT/HCPCS: 71046; 96372; J1885

== ENCOUNTER 2020-01-10 07:32 | Emergency (ER) | payer SELFPAY ==
[2020-01-10 08:15] LABS: #Eosinphils 0.4 thou/uL (0.0-0.7); #Lymphocytes 1.6 thou/uL (1.20-3.40); #Monocytes 0.4 thou/uL (0.11-0.59); #Neutrophils 4.1 thou/uL (1.40-6.50); %Basophils 0.6 % (0.0-1.0); %Eosinophils 5.8 % (0.0-10.0); %Lymphocytes 25.1 % (21.0-51.0); %Monocytes 6.3 % (0.0-10.0); %Neutrophils 62.3 % (42.0-75.0); Hemoglobin 12.6 g/dL (12.0-16.0); Mean Corpuscular Hemoglobin 26.4 pg (27.0-31.0); Mean Platelet Volume 7.7 fL (7.4-10.4); Platelet Count 387 thou/uL (130-400); RBC Distribution Width 14.4 % (11.5-14.5); Red Blood Cell (RBC) Count 4.78 mill/uL (4.20-5.40); White Blood Cell (WBC) Count 6.5 thou/uL (4.8-10.8)
[2020-01-10] MEDS ORDERED: Acetaminophen 500 MG TAB ONE (08:17)
--- NOTE | 2020-01-10 08:28 | RAD ---
EXAM: Single view of the chest HISTORY: Chest pain COMPARISON: 03/02/2019 FINDINGS: Single view of the chest shows a normal sized cardiomediastinal silhouette. There is no herman dence of consolidation, mass, or pleural effusion. The bones are unremarkable. IMPRESSION: No evidence of acute cardiopulmonary disease
[2020-01-10 08:35] LABS: BHCG - Serum Negative (NEGATIVE); Pregs Control Background? CLEAR/WHITE (CLR/WHITE); Pregs Control Bar Appear? YES (CONTROL BAR)
[2020-01-10 08:45] LABS: ALT (SGPT) 17 U/L (8-55); AST (SGOT) 17 U/L (5-34); Albumin 3.7 g/dL (3.5-5.0); Alkaline Phosphatase 77 U/L (40-110); Anion Gap 11 mmol/L (10-20); BUN (Urea Nitrogen) 8 mg/dL (7.0-18.7); Bilirubin, Total 0.4 mg/dL (0.2-1.2); CK (CPK) 172 U/L (29-168); Calc. Creatinine Clearance 0 mL/min (70-130); Calcium 9.4 mg/dL (7.8-10.44); Carbon Dioxide 24 mmol/L (22-29); Chloride 107 mmol/L (98-107); Estimated GFR-MDRD 86; Globulin 3.5 g/dL (2.4-3.5); Glucose 84 mg/dL (70-105); Magnesium 1.9 mg/dL (1.6-2.6); Potassium 4.2 mmol/L (3.5-5.1); Protein, Total 7.2 g/dL (6.0-8.3); Sodium 138 mmol/L (136-145)
== END 2020-01-10 10:01 | disposition home or self-care (01) ==
LOC: ERS 07:32
DX: R07.89 Other chest pain (principal); F32.9 Major depressive disorder, single episode, unspecified; Z86.718 Personal history of other venous thrombosis and embolism; Z86.711 Personal history of pulmonary embolism
CPT/HCPCS: 36415; 71045; 80053; 82550; 83735; 84484; 84703; 85025; 93005

== ENCOUNTER 2020-03-19 14:15 | Emergency (ER) | payer OTHER, SELFPAY ==
[~2020-03-19 14:15] MED LIST changes: -ISOVUE-370 76%-LOCM 1 ML ONE; +Iopamidol 370 76% 100 ML VIAL ONE
--- NOTE | 2020-03-19 15:31 | RAD ---
XR Chest 1 View Portable HISTORY: Chest pain, shortness of breath COMPARISON: 01/10/2020, 02/07/2020 FINDINGS: The heart size is normal. The lungs are well expanded without focal areas of consolidation, pneumothorax or pleural effusions. IMPRESSION: No radiographic evidence of acute cardiopulmonary process.
[2020-03-19 15:46] LABS: #Basophils 0.1 thou/uL (0.0-0.2); #Eosinphils 0.3 thou/uL (0.0-0.7); #Lymphocytes 2.2 thou/uL (1.20-3.40); #Monocytes 0.6 thou/uL (0.11-0.59); #Neutrophils 3.9 thou/uL (1.40-6.50); %Basophils 1.3 % (0.0-1.0); %Eosinophils 4.8 % (0.0-10.0); %Lymphocytes 31.2 % (21.0-51.0); %Monocytes 8.2 % (0.0-10.0); %Neutrophils 54.6 % (42.0-75.0); Hemoglobin 12.7 g/dL (12.0-16.0); Mean Corpuscular HGB CONC 33.6 g/dL (32.0-36.0); Mean Corpuscular Hemoglobin 26.8 pg (27.0-31.0); Mean Corpuscular Volume 79.5 fL (78.0-98.0); Platelet Count 363 thou/uL (130-400); RBC Distribution Width 13.8 % (11.5-14.5); Red Blood Cell (RBC) Count 4.76 mill/uL (4.20-5.40); White Blood Cell (WBC) Count 7.1 thou/uL (4.8-10.8)
[2020-03-19 16:09] LABS: ALT (SGPT) 13 U/L (8-55); AST (SGOT) 16 U/L (5-34); Albumin 3.9 g/dL (3.5-5.0); Alkaline Phosphatase 70 U/L (40-110); Anion Gap 14 mmol/L (10-20); BUN (Urea Nitrogen) 8 mg/dL (7.0-18.7); Bilirubin, Total 0.2 mg/dL (0.2-1.2); CK (CPK) 185 U/L (29-168); Calc. Creatinine Clearance 0 mL/min (70-130); Calcium 9.3 mg/dL (7.8-10.44); Carbon Dioxide 25 mmol/L (22-29); Chloride 107 mmol/L (98-107); Estimated GFR-MDRD 72; Globulin 3.6 g/dL (2.4-3.5); Glucose 115 mg/dL (70-105); Potassium 3.6 mmol/L (3.5-5.1); Protein, Total 7.5 g/dL (6.0-8.3); Sodium 142 mmol/L (136-145)
[2020-03-19 16:39] LABS: BHCG - Serum Negative (NEGATIVE); Pregs Control Background? CLEAR/WHITE (CLR/WHITE); Pregs Control Bar Appear? YES (CONTROL BAR)
[2020-03-19] MEDS ORDERED: diphenhydrAMINE 50 MG/ML VIAL ONE (17:26)
[2020-03-19] MEDS ORDERED: Famotidine/PF 20 mg/2ml Vial ONE (17:26)
[2020-03-19] MEDS ORDERED: methylPREDNISolone Sod Succ/PF 125 MG/2 ML VIAL ONE (17:26)
--- NOTE | 2020-03-19 20:03 | CT ---
CT PULMONARY ANGIOGRAM WITH IV CONTRAST AND 3D MIP RECONSTRUCTIONS: date: 03-19-2020 PROVIDED CLINICAL HISTORY: Chest pressure FINDINGS: Comparison is made with study dated 05-22-19. The heart, pericardium, and great vessels appear unremarkable. There is no evidence for central or se gmental pulmonary embolus. The lungs are free of significant opacity. The airway appears patent and o f normal caliber. No pleural fluid or pneumothorax apparent. No evidence for thoracic lymph node enla rgement. The visualized portions of the upper abdomen appear unremarkable. The osseous structures demonstrate no concerning lytic or blastic lesions. IMPRESSION: No evidence for central or segmental pulmonary embolus. POS: [facility]
[2020-03-20 13:30] LABS: SARS-CoV-2 MS2 Positive; SARS-CoV-2 N Gene Negative; SARS-CoV-2 S Gene Negative; SARS-CoV-2 by NAA Not Detected (NotDetected); SARS-CoV-2 orf1ab Negative
== END 2020-03-19 19:33 | disposition home or self-care (01) ==
LOC: ERS 14:15
DX: B34.9 Viral infection, unspecified (principal); R07.9 Chest pain, unspecified; Z20.828 Contact with and (suspected) exposure to other viral communicable diseases; Z86.718 Personal history of other venous thrombosis and embolism; Z79.899 Other long term (current) drug therapy
CPT/HCPCS: 36415; 71045; 71275; 80053; 82550; 84484; 84703; 85025; 85379; 87635; 93005; 94760; 96374; 96375; J1200; J2930; Q9967; S0028; U0003

== ENCOUNTER 2020-04-11 15:39 | Emergency (ER) | payer OTHER, SELFPAY ==
[2020-04-11 16:40] LABS: #Eosinphils 0.1 thou/uL (0.0-0.7); #Lymphocytes 1.4 thou/uL (1.20-3.40); #Neutrophils 5.1 thou/uL (1.40-6.50); %Basophils 0.6 % (0.0-1.0); %Eosinophils 1.2 % (0.0-10.0); %Lymphocytes 18.3 % (21.0-51.0); %Monocytes 12.5 % (0.0-10.0); %Neutrophils 67.5 % (42.0-75.0); Hemoglobin 12.2 g/dL (12.0-16.0); Mean Corpuscular HGB CONC 33.9 g/dL (32.0-36.0); Mean Corpuscular Hemoglobin 26.4 pg (27.0-31.0); Mean Corpuscular Volume 77.9 fL (78.0-98.0); Mean Platelet Volume 7.7 fL (7.4-10.4); Platelet Count 404 thou/uL (130-400); RBC Distribution Width 13.7 % (11.5-14.5); Red Blood Cell (RBC) Count 4.62 mill/uL (4.20-5.40); White Blood Cell (WBC) Count 7.6 thou/uL (4.8-10.8)
[2020-04-11] MEDS ORDERED: Acetaminophen 500 MG TAB ONE (16:42)
[2020-04-11 16:47] LABS: Bacteria/HPF 3+ HPF (None Seen); Bilirubin Negative (Negative); Blood, Urine 1+ (Negative); Clarity Turbid (Clear); Glucose, Urine (Dipstick) Normal (Negative); Ketone, Urine Negative (Negative); Leukocyte 500 Leu/uL (Negative); Nitrite 2+ (Negative); Protein, Urine (Dipstick) 50 mg/dL (Neg-Trace); RBC/HPF 0-3 HPF (0-3); Specific Gravity, Urine 1.011 (1.002-1.036); Squamous Epithelial None Seen HPF (0-3); Urobilinogen Normal mg/dL (Less than 2); WBC/HPF Greater than 50 HPF (0-3); pH, Urine 5.5 (5.0-9.0)
[2020-04-11 16:48] LABS: Pregnancy Test - Urine (BHCG) Negative (Negative); Pregu Control Background? CLEAR/WHITE (CLR/WHITE); Pregu Control Bar Appear? YES (CONTROL BAR); Specific Gravity 1.011 (1.002-1.036)
[2020-04-11 17:02] LABS: ALT (SGPT) 23 U/L (8-55); AST (SGOT) 26 U/L (5-34); Alkaline Phosphatase 64 U/L (40-110); Anion Gap 13 mmol/L (10-20); BUN (Urea Nitrogen) 7 mg/dL (7.0-18.7); Bilirubin, Total 0.4 mg/dL (0.2-1.2); Calc. Creatinine Clearance 0 mL/min (70-130); Calcium 9.1 mg/dL (7.8-10.44); Carbon Dioxide 26 mmol/L (22-29); Chloride 101 mmol/L (98-107); Estimated GFR-MDRD 82; Globulin 4.2 g/dL (2.4-3.5); Glucose 79 mg/dL (70-105); Potassium 3.6 mmol/L (3.5-5.1); Protein, Total 8.2 g/dL (6.0-8.3); Sodium 136 mmol/L (136-145)
[2020-04-11] MEDS ORDERED: cefTRIAXone\\ROCEPHIN 2 GM VIAL ONE (17:45)
[2020-04-11] MEDS ORDERED: Acetaminophen 325 MG TAB ONE ×2 (17:45→17:46)
[2020-04-11] MEDS ORDERED: Ondansetron PF 4 MG/2 ML Vial ONE (17:45)
[2020-04-11] MEDS ORDERED: Ketorolac Tromethamine 30 MG/ML VIAL ONE (17:45)
== END 2020-04-11 18:31 | disposition home or self-care (01) ==
LOC: ERS 15:39
DX: A41.9 Sepsis, unspecified organism (principal); N12 Tubulo-interstitial nephritis, not specified as acute or chronic; F32.9 Major depressive disorder, single episode, unspecified; Z86.711 Personal history of pulmonary embolism
CPT/HCPCS: 80053; 81003; 81015; 81025; 83605; 85025; 87040; 96365; 96375; J0696; J1885; J2405

== ENCOUNTER 2020-05-21 18:08 | Emergency (ER) | payer SELFPAY ==
[2020-05-21] MEDS ORDERED: Lidocaine 1% w/Epinephrine 1:100K 20 ML VIAL ONE ×2 (19:05)
== END 2020-05-21 19:04 | disposition home or self-care (01) ==
LOC: ERS 18:08
DX: L02.411 Cutaneous abscess of right axilla (principal); F32.9 Major depressive disorder, single episode, unspecified
CPT/HCPCS: 10061

== ENCOUNTER 2020-05-31 07:11 | Emergency (ER) | payer SELFPAY | END 2020-05-31 07:33 | disposition home or self-care (01) | LOC: ERS 07:11 | DX: L02.411 Cutaneous abscess of right axilla (principal); L03.111 Cellulitis of right axilla; R59.0 Localized enlarged lymph nodes | CPT/HCPCS: 99283 ==

== ENCOUNTER 2020-07-19 16:46 | Emergency (ER) | payer MEDICAID, SELFPAY ==
[2020-07-19 17:14] LABS: #Basophils 0.1 thou/uL (0.0-0.2); #Eosinphils 0.3 thou/uL (0.0-0.7); #Lymphocytes 2.6 thou/uL (1.20-3.40); #Monocytes 0.6 thou/uL (0.11-0.59); #Neutrophils 3.4 thou/uL (1.40-6.50); %Basophils 1.4 % (0.0-1.0); %Eosinophils 4.9 % (0.0-10.0); %Lymphocytes 37.1 % (21.0-51.0); %Monocytes 8.3 % (0.0-10.0); %Neutrophils 48.3 % (42.0-75.0); Hemoglobin 12.1 g/dL (12.0-16.0); Mean Corpuscular HGB CONC 33.6 g/dL (32.0-36.0); Mean Corpuscular Hemoglobin 26.2 pg (27.0-31.0); Platelet Count 373 thou/uL (130-400); RBC Distribution Width 15.3 % (11.5-14.5)
--- NOTE | 2020-07-19 17:19 | RAD ---
PA AND LATERAL CHEST: 07/19/20 HISTORY: Tested positive for COVID on July 02. New onset shortness of breath. COMPARISON: 02/07/20 exam. Heart size and mediastinum are within normal limits. Lungs appear clear of any infiltrative process. No pleural effusions. IMPRESSION: No active intrathoracic disease. POS: [facility]
[2020-07-19 17:42] LABS: ALT (SGPT) 12 U/L (8-55); AST (SGOT) 16 U/L (5-34); Alkaline Phosphatase 68 U/L (40-110); Anion Gap 14 mmol/L (10-20); BUN (Urea Nitrogen) 7 mg/dL (7.0-18.7); Bilirubin, Total 0.3 mg/dL (0.2-1.2); Calc. Creatinine Clearance 0 mL/min (70-130); Calcium 9.4 mg/dL (7.8-10.44); Carbon Dioxide 25 mmol/L (22-29); Chloride 104 mmol/L (98-107); Globulin 3.4 g/dL (2.4-3.5); Glucose 88 mg/dL (70-105); Potassium 3.7 mmol/L (3.5-5.1); Protein, Total 7.4 g/dL (6.0-8.3); Sodium 139 mmol/L (136-145)
[2020-07-19] MEDS ORDERED: Famotidine/PF 20 mg/2ml Vial ONE (18:09)
[2020-07-19] MEDS ORDERED: methylPREDNISolone Sod Succ/PF 125 MG/2 ML VIAL ONE (18:09)
[2020-07-19] MEDS ORDERED: diphenhydrAMINE 50 MG/ML VIAL ONE (18:09)
--- NOTE | 2020-07-19 19:40 | CT ---
CT ANGIO OF CHEST PERFORMED WITH INTRAVENOUS CONTRAST ENHANCEMENT WITH 3D RECONSTRUCTIONS: 07/19/20 HISTORY: Patient tested positive for COVID on July 02. Ended quarantine on July 15. Now with new onse t shortness of breath. The lungs are clear of any infiltrative process. Tiny 3 mm pleural based area of nodularity in the le ft upper lobe is stable as compared to a 03/19/20 study. There is no evidence for any type of COVID ty pe pneumonia. No significant mediastinal or hilar adenopathy. There is good pulmonary artery opacification. No CT evidence for pulmonary embolus. Some residual thy katie tissue is noted. The visualized liver parenchyma shows no focal abnormalities. IMPRESSION: No CT evidence for pulmonary embolus. No infiltrative lung changes. POS: [facility]
== END 2020-07-19 19:58 | disposition home or self-care (01) ==
LOC: ERS 16:46
DX: R06.02 Shortness of breath (principal); Z86.718 Personal history of other venous thrombosis and embolism
CPT/HCPCS: 36415; 71046; 71275; 80053; 84484; 85025; 93005; 96374; 96375; J1200; J2930; S0028

== ENCOUNTER 2020-07-25 08:34 | Emergency (ER) | payer MEDICAID, SELFPAY ==
[2020-07-25 10:02] LABS: #Basophils 0.1 thou/uL (0.0-0.2); #Eosinphils 0.3 thou/uL (0.0-0.7); #Monocytes 0.5 thou/uL (0.11-0.59); #Neutrophils 4.9 thou/uL (1.40-6.50); %Basophils 0.9 % (0.0-1.0); %Eosinophils 4.4 % (0.0-10.0); %Lymphocytes 25.4 % (21.0-51.0); %Monocytes 6.6 % (0.0-10.0); %Neutrophils 62.7 % (42.0-75.0); Hemoglobin 12.5 g/dL (12.0-16.0); Mean Corpuscular HGB CONC 33.2 g/dL (32.0-36.0); Mean Corpuscular Hemoglobin 26.1 pg (27.0-31.0); Mean Corpuscular Volume 78.5 fL (78.0-98.0); Mean Platelet Volume 7.9 fL (7.4-10.4); Platelet Count 354 thou/uL (130-400); RBC Distribution Width 15.3 % (11.5-14.5); Red Blood Cell (RBC) Count 4.79 mill/uL (4.20-5.40); White Blood Cell (WBC) Count 7.8 thou/uL (4.8-10.8)
[2020-07-25 10:13] LABS: BHCG - Serum Negative (NEGATIVE); Pregs Control Background? CLEAR/WHITE (CLR/WHITE); Pregs Control Bar Appear? YES (CONTROL BAR)
--- NOTE | 2020-07-25 10:18 | RAD ---
PORTABLE CHEST 1 VIEW: Date: 07/25/2020 Time: 0948 hours HISTORY: Dizziness, shortness of breath, dyspnea. Tested positive for COVID-19 on 07/02/2020. COMPARISON: 07/19/2020. FINDINGS: The heart size is normal. The lungs are clear. The bony thorax is normal. IMPRESSION: Normal exam. POS: [facility]
[2020-07-25 10:25] LABS: ALT (SGPT) 10 U/L (8-55); AST (SGOT) 15 U/L (5-34); Albumin 3.9 g/dL (3.5-5.0); Alkaline Phosphatase 64 U/L (40-110); Anion Gap 13 mmol/L (10-20); BUN (Urea Nitrogen) 8 mg/dL (7.0-18.7); Bilirubin, Total 0.4 mg/dL (0.2-1.2); Calc. Creatinine Clearance 0 mL/min (70-130); Carbon Dioxide 23 mmol/L (22-29); Chloride 106 mmol/L (98-107); Globulin 3.7 g/dL (2.4-3.5); Glucose 74 mg/dL (70-105); Potassium 4.1 mmol/L (3.5-5.1); Protein, Total 7.6 g/dL (6.0-8.3); Sodium 138 mmol/L (136-145)
--- NOTE | 2020-07-25 10:48 | ULT ---
Exam: Right upper extremity venous ultrasound with Doppler HISTORY: Pain. Edema COMPARISON: None TECHNIQUE: Grayscale, color flow, Doppler imaging and spectral waveform analysis of the right upper e xtremity venous system FINDINGS: There is compressibility and flow in the internal jugular vein. There is flow in the subclavian vein. There is compressibility and flow in the axillary vein. There is compressibility and flow in the brachial vein, basilic vein, radial vein and ulnar vein. There is echogenic material with lack of renita w and compressibility in the cephalic vein. IMPRESSION: Cephalic vein thrombus.
[2020-07-25] MEDS ORDERED: Apixaban 5 MG TAB PO SCH (11:45)
== END 2020-07-25 12:17 | disposition home or self-care (01) ==
LOC: ERS 08:34
DX: I82.621 Acute embolism and thrombosis of deep veins of right upper extremity (principal); R06.02 Shortness of breath; R42 Dizziness and giddiness; R07.89 Other chest pain
CPT/HCPCS: 36415; 71045; 80053; 83880; 84484; 84703; 85025; 85379; 93005

== ENCOUNTER 2020-09-06 15:00 | Emergency (ER) | payer SELFPAY ==
[2020-09-06 15:46] LABS: #Eosinphils 0.4 thou/uL (0.0-0.7); #Lymphocytes 2.6 thou/uL (1.20-3.40); #Monocytes 0.9 thou/uL (0.11-0.59); #Neutrophils 5.7 thou/uL (1.40-6.50); %Basophils 0.3 % (0.0-1.0); %Eosinophils 4.2 % (0.0-10.0); %Lymphocytes 26.8 % (21.0-51.0); %Monocytes 9.5 % (0.0-10.0); %Neutrophils 59.1 % (42.0-75.0); Hemoglobin 11.1 g/dL (12.0-16.0); Mean Corpuscular HGB CONC 33.4 g/dL (32.0-36.0); Mean Corpuscular Hemoglobin 26.4 pg (27.0-31.0); Mean Platelet Volume 7.6 fL (7.4-10.4); Platelet Count 439 thou/uL (130-400); RBC Distribution Width 14.1 % (11.5-14.5); White Blood Cell (WBC) Count 9.7 thou/uL (4.8-10.8)
[2020-09-06] MEDS ORDERED: Aspirin 325 MG TAB ONE (15:56)
[2020-09-06 16:01] LABS: ALT (SGPT) 9 U/L (8-55); AST (SGOT) 14 U/L (5-34); Albumin 3.7 g/dL (3.5-5.0); Alkaline Phosphatase 69 U/L (40-110); Anion Gap 11 mmol/L (10-20); BUN (Urea Nitrogen) 5 mg/dL (7.0-18.7); Bilirubin, Total 0.3 mg/dL (0.2-1.2); Calc. Creatinine Clearance 0 mL/min (70-130); Calcium 9.1 mg/dL (7.8-10.44); Carbon Dioxide 26 mmol/L (22-29); Chloride 105 mmol/L (98-107); Globulin 3.5 g/dL (2.4-3.5); Glucose 82 mg/dL (70-105); Potassium 3.6 mmol/L (3.5-5.1); Protein, Total 7.2 g/dL (6.0-8.3); Sodium 138 mmol/L (136-145)
== END 2020-09-06 18:05 | disposition home or self-care (01) ==
LOC: ERS 15:00
DX: R07.9 Chest pain, unspecified (principal); M79.605 Pain in left leg; M79.604 Pain in right leg; Z86.718 Personal history of other venous thrombosis and embolism; Z86.711 Personal history of pulmonary embolism; Z79.01 Long term (current) use of anticoagulants
CPT/HCPCS: 71045; 80053; 84484; 85025; 85379; 93005; 93970

== ENCOUNTER 2021-03-10 22:23 | Emergency (ER) | payer SELFPAY ==
[~2021-03-10 22:23] MED LIST changes: -Iopamidol 370 76% 100 ML VIAL ONE; +Iopamidol-370 76% 500 ML 1 ML ONE
[2021-03-10] MEDS ORDERED: diphenhydrAMINE 50 MG/ML VIAL ONE (22:54)
[2021-03-10] MEDS ORDERED: Famotidine/PF 20 mg/2ml Vial ONE (22:54)
[2021-03-10] MEDS ORDERED: methylPREDNISolone Sod Succ/PF 125 MG/2 ML VIAL ONE (22:54)
[2021-03-10 23:34] LABS: Hemoglobin 11.3 g/dL (12.0-16.0); Mean Corpuscular HGB CONC 33.3 g/dL (32.0-36.0); Mean Platelet Volume 8.2 fL (7.4-10.4); Platelet Count 427 thou/uL (130-400); RBC Distribution Width 16.8 % (11.5-14.5); Red Blood Cell (RBC) Count 4.72 mill/uL (4.20-5.40); White Blood Cell (WBC) Count 10.3 thou/uL (4.8-10.8)
[2021-03-10 23:40] LABS: BHCG - Serum Negative (NEGATIVE); Pregs Control Background? CLEAR/WHITE (CLR/WHITE); Pregs Control Bar Appear? YES (CONTROL BAR)
[2021-03-10 23:47] LABS: #Eosinphils 0.4 thou/uL (0.0-0.7); #Lymphocytes 3.1 thou/uL (1.20-3.40); #Monocytes 0.7 thou/uL (0.11-0.59); #Neutrophils 6.1 thou/uL (1.40-6.50); %Basophils 0.3 % (0.0-1.0); %Eosinophils 4.1 % (0.0-10.0); %Lymphocytes 29.9 % (21.0-51.0); %Monocytes 6.4 % (0.0-10.0); %Neutrophils 59.3 % (42.0-75.0); MDiff Complete? YES; Microcytosis SLIGHT = 6-15 cells (100X) (0-5/hpf)
[2021-03-10 23:49] LABS: ALT (SGPT) 10 U/L (8-55); AST (SGOT) 15 U/L (5-34); Albumin 3.5 g/dL (3.5-5.0); Alkaline Phosphatase 82 U/L (40-110); Anion Gap 11 mmol/L (10-20); BUN (Urea Nitrogen) 9 mg/dL (7.0-18.7); Bilirubin, Total 0.2 mg/dL (0.2-1.2); Calc. Creatinine Clearance 0 mL/min (70-130); Calcium 9.1 mg/dL (7.8-10.44); Carbon Dioxide 25 mmol/L (22-29); Chloride 105 mmol/L (98-107); Globulin 3.8 g/dL (2.4-3.5); Glucose 93 mg/dL (70-105); Lipase 14 U/L (8-78); Potassium 3.9 mmol/L (3.5-5.1); Protein, Total 7.3 g/dL (6.0-8.3); Sodium 137 mmol/L (136-145)
== END 2021-03-11 01:10 | disposition home or self-care (01) ==
LOC: ERS 22:23
DX: R06.00 Dyspnea, unspecified (principal); Z86.711 Personal history of pulmonary embolism; Z86.718 Personal history of other venous thrombosis and embolism; Z79.01 Long term (current) use of anticoagulants
CPT/HCPCS: 71275; 80053; 83690; 84484; 84703; 85025; 93005; 96374; 96375; J1200; J2930; Q9967; S0028

== ENCOUNTER 2021-04-30 08:07 | Emergency (ER) | payer SELFPAY ==
[2021-04-30 09:36] LABS: Bilirubin Negative (Negative); Blood, Urine Negative (Negative); Clarity Clear (Clear); Glucose, Urine (Dipstick) Normal (Negative); Ketone, Urine Negative (Negative); Leukocyte Negative Leu/uL (Negative); Nitrite Negative (Negative); Protein, Urine (Dipstick) Negative (Neg-Trace); Specific Gravity, Urine 1.014 (1.002-1.036); Urobilinogen Normal mg/dL (Less than 2); pH, Urine 7.5 (5.0-9.0)
[2021-04-30 09:38] LABS: Pregnancy Test - Urine (BHCG) Negative (Negative); Pregu Control Background? CLEAR/WHITE (CLR/WHITE); Pregu Control Bar Appear? YES (CONTROL BAR); Specific Gravity 1.014 (1.002-1.036)
[2021-05-02 09:09] LABS: Chlamydia by PCR Not Detected (NotDetected); GC by PCR Not Detected (NotDetected)
== END 2021-04-30 12:08 | disposition home or self-care (01) ==
LOC: ERS 08:07
DX: N76.0 Acute vaginitis (principal); Z86.711 Personal history of pulmonary embolism; Z86.718 Personal history of other venous thrombosis and embolism; Z79.01 Long term (current) use of anticoagulants
CPT/HCPCS: 81003; 81025; 87480; 87491; 87510; 87591; 87660; 99284

== ENCOUNTER 2021-07-07 13:55 | Emergency (ER) | payer SELFPAY ==
[2021-07-07 16:03] LABS: #Basophils 0.1 thou/uL (0.0-0.2); #Eosinphils 0.5 thou/uL (0.0-0.7); #Lymphocytes 2.5 thou/uL (1.20-3.40); #Monocytes 0.5 thou/uL (0.11-0.59); #Neutrophils 5.1 thou/uL (1.40-6.50); %Basophils 0.6 % (0.0-1.0); %Eosinophils 5.3 % (0.0-10.0); %Lymphocytes 28.7 % (21.0-51.0); %Monocytes 6.2 % (0.0-10.0); %Neutrophils 59.1 % (42.0-75.0); Hemoglobin 12.8 g/dL (12.0-16.0); Mean Corpuscular HGB CONC 34.1 g/dL (32.0-36.0); Mean Corpuscular Hemoglobin 26.4 pg (27.0-31.0); Mean Corpuscular Volume 77.3 fL (78.0-98.0); Mean Platelet Volume 7.5 fL (7.4-10.4); Platelet Count 423 thou/uL (130-400); RBC Distribution Width 15.1 % (11.5-14.5); Red Blood Cell (RBC) Count 4.86 mill/uL (4.20-5.40); White Blood Cell (WBC) Count 8.7 thou/uL (4.8-10.8)
[2021-07-07] MEDS ORDERED: Ketorolac Tromethamine 30 MG/ML VIAL ONE (16:05)
[2021-07-07 16:23] LABS: ALT (SGPT) 12 U/L (8-55); AST (SGOT) 14 U/L (5-34); Alkaline Phosphatase 83 U/L (40-110); Anion Gap 13 mmol/L (10-20); BUN (Urea Nitrogen) 8 mg/dL (7.0-18.7); Bilirubin, Total 0.3 mg/dL (0.2-1.2); Calc. Creatinine Clearance 0 mL/min (70-130); Calcium 9.8 mg/dL (7.8-10.44); Carbon Dioxide 25 mmol/L (22-29); Chloride 106 mmol/L (98-107); Globulin 3.8 g/dL (2.4-3.5); Glucose 86 mg/dL (70-105); Lipase 18 U/L (8-78); Potassium 4.1 mmol/L (3.5-5.1); Protein, Total 7.8 g/dL (6.0-8.3); Sodium 140 mmol/L (136-145)
== END 2021-07-07 16:50 | disposition home or self-care (01) ==
LOC: ERS 13:55
DX: R07.9 Chest pain, unspecified (principal); Z86.711 Personal history of pulmonary embolism
CPT/HCPCS: 71045; 80053; 83690; 84484; 85025; 85379; 93005; 94760; 96374; J1885

== ENCOUNTER 2022-01-11 20:55 | Emergency (ER) | payer SELFPAY ==
[2022-01-11] MEDS ORDERED: Acetaminophen 500 MG TAB ONE (21:52)
== END 2022-01-12 00:09 | disposition home or self-care (01) ==
LOC: ERS 20:55
DX: B34.9 Viral infection, unspecified (principal); Z20.822 Contact with and (suspected) exposure to COVID-19; Z86.711 Personal history of pulmonary embolism; Z86.718 Personal history of other venous thrombosis and embolism; Z79.899 Other long term (current) drug therapy
CPT/HCPCS: 71045; 93005; U0003; U0005